=== PATIENT | female | born 2005 | race Caucasian/White ===

== ENCOUNTER 2025-06-10 18:28 | Emergency (ER) | payer OTHER, SELFPAY ==
[2025-06-10] MEDS ORDERED: Acetaminophen 325 MG TAB ONE (20:41)
[2025-06-10] MEDS ORDERED: Ibuprofen 200 MG TAB ONE (20:42)
[2025-06-10] MEDS ORDERED: predniSONE 20 MG TAB ONE (20:42)
== END 2025-06-10 21:38 | disposition home or self-care (01) ==
LOC: ERS 18:28
DX: U07.1 COVID-19 (principal); Z79.899 Other long term (current) drug therapy
CPT/HCPCS: 87081; 87428; 87430; 99283; J7512